=== PATIENT | female | born 1960 | race Two or more races ===

== ENCOUNTER 2017-03-09 13:39 | Emergency (ER) | payer MEDICARE ==
[2017-03-09] MEDS ORDERED: ONDANSETRON 4 MG/2 ML VIAL IVP STA (15:29)
[2017-03-09] MEDS ORDERED: SODIUM CHLORIDE 0.9% 1,000 ML IV ONE ×2 (15:29→15:42)
[2017-03-09] MEDS ORDERED: ONDANSETRON 4 MG/2 ML VIAL ONE (15:42)
[2017-03-09] MEDS ORDERED: PROMETHAZINE INJ 12.5 MG in SODIUM CHLORIDE 0.9% 50 ML IV STA (16:09)
[2017-03-09] MEDS ORDERED: PROMETHAZINE 25 MG/1 ML VIAL ONE (16:10)
[2017-03-09] MEDS ORDERED: MORPHINE 2 MG/ML SYRINGE IVP STA (16:57)
[2017-03-09] MEDS ORDERED: MORPHINE 2 MG/ML SYRINGE ONE (16:58)
[2017-03-09] MEDS ORDERED: HYOSCYAMINE SL 0.125 MG TABLET SL STA (17:25)
[2017-03-09] MEDS ORDERED: IOPAMIDOL-300 100 ML VIAL IVP ONE (17:52)
[2017-03-09] MEDS ORDERED: LIDOCAINE VISCOUS 2% 15 ML UDC MM STA (17:58)
[2017-03-09] MEDS ORDERED: MAG HYDROX/AL HYDROX/SIMETH 30 ML UDC PO STA (17:58)
[2017-03-09] MEDS ORDERED: SUCRALFATE 1 GM/10 ML UDC PO STA (17:58)
[2017-03-09] MEDS ORDERED: PANTOPRAZOLE 40 MG VIAL IVP STA (17:58)
[2017-03-09] MEDS ORDERED: LIDOCAINE VISCOUS 2% 15 ML UDC MM ONE (18:04)
[2017-03-09] MEDS ORDERED: PANTOPRAZOLE 40 MG VIAL ONE (18:05)
[2017-03-09] MEDS ORDERED: MAG HYDROX/AL HYDROX/SIMETH 30 ML UDC ONE (18:05)
[2017-03-09] MEDS ORDERED: SUCRALFATE 1 GM/10 ML UDC ONE (18:05)
== END 2017-03-09 18:49 | disposition home or self-care (01) ==
DX: K21.9 Gastro-esophageal reflux disease without esophagitis (principal); K44.9 Diaphragmatic hernia without obstruction or gangrene; R10.13 Epigastric pain; Z98.890 Other specified postprocedural states
CPT/HCPCS: 36415; 74177; 80053; 81001; 83690; 85025; 96374; 96375; 99283; 99284; A9270; Q9967

== ENCOUNTER 2017-07-10 09:31 | Outpatient (CLI) | payer MEDICARE ==
[2017-07-10 18:37] LABS: BASOPHILS # (AUTO) 0.1 10^3/uL (0.0-0.1); BASOPHILS % (AUTO) 0.8 %; EOSINOPHILS # (AUTO) 0.2 10^3/uL (0.0-0.7); EOSINOPHILS % (AUTO) 2.6 %; HCT - HEMATOCRIT 34.8 % (37.0-47.0); HGB - HEMOGLOBIN 11.4 g/dL (12.0-16.0); LYMPHOCYTES # (AUTO) 2.1 10^3/uL (1.5-3.5); LYMPHOCYTES % (AUTO) 30.1 %; MEAN CORPUSCULAR HEMOGLOBIN 24.2 pg (27.0-31.0); MEAN CORPUSCULAR HGB CONC 32.8 g/dL (32.0-36.0); MEAN CORPUSCULAR VOLUME 73.8 fL (81.0-99.0); MEAN PLATELET VOLUME 7.8 fL (7.9-10.8); MONOCYTES # (AUTO) 0.3 10^3/uL (0.0-1.0); MONOCYTES % (AUTO) 4.4 %; NEUTROPHILS # (AUTO) 4.4 10^3/uL (1.5-6.6); NEUTROPHILS % (AUTO) 62.1 %; NUCLEATED RED BLOOD CELLS AUTO 0.1 /100WBC; RED BLOOD COUNT 4.72 10^6/uL (4.20-5.40); RED CELL DISTRIBUTION WIDTH 19.3 % (12.0-15.0)
[2017-07-10 18:46] LABS: FERRITIN 5.4 ng/mL (11.0-306.8)
[2017-07-10 18:50] LABS: FOLATE 20.45 ng/mL (5.90 - >24.8)
[2017-07-10 18:57] LABS: ALBUMIN/GLOBULIN RATIO 1.2 (1.0-2.2); BILIRUBIN,TOTAL 0.5 mg/dL (0.2-1.0); BUN - BLOOD UREA NITROGEN 17 mg/dL (6-20); CALCIUM 9.2 mg/dL (8.5-10.3); CARBON DIOXIDE - CO2 23 mmol/L (21-32); CHLORIDE 108 mmol/L (101-111); CHOL/HDL RATIO 2.9 (<4.4); CHOLESTEROL 146 mg/dL; CREATININE 0.5 mg/dL (0.4-1.0); GFR - MDRD 128 (>89); GLUCOSE 91 mg/dL (70-100); HDL CHOLESTEROL 50 mg/dL; IRON 27 ug/dL (28-170); LDL/HDL RATIO 1.5 (<4.4); MAGNESIUM 1.9 mg/dL (1.7-2.8); POTASSIUM 3.8 mmol/L (3.5-5.0); SODIUM 140 mmol/L (135-145); TOTAL IRON BINDING CAPACITY 542 ug/dL (250-450); TOTAL PROTEIN 7.3 g/dL (6.7-8.2); TRANSFERRIN 387 mg/dL (192-382); TRIGLYCERIDES 111 mg/dL; VLDL CHOLESTEROL 22 mg/dL
== END 2017-07-10 09:32 | disposition home or self-care (01) ==
LOC: LAB.F 09:31
PROVIDERS: ATTEND Registered Nurse
DX: Z98.84 Bariatric surgery status (principal)
CPT/HCPCS: 36415; 80053; 80061; 82306; 82607; 82728; 82746; 83540; 83735; 83970; 84466; 85025; 86803

== ENCOUNTER 2017-12-04 13:20 | Outpatient (CLI) | payer MEDICARE, OTHER ==
--- NOTE | 2017-12-04 15:51 | XRAY Report ---
DATE OF SERVICE: 12/04/2017 THREE VIEW LUMBAR SPINE: 12/04/2017 CLINICAL INDICATION: Back pain. FINDINGS: AP, lateral, and coned down views of the lumbar spine demonstrate mild degenerative disk and facet disease. There is no evidence of compression fracture. The bowel gas pattern is unremarkable. IMPRESSION: MILD DEGENERATIVE CHANGES. TD: 12/04/2017 16:50
== END 2017-12-04 13:21 | disposition home or self-care (01) ==
LOC: DI.S 13:20
PROVIDERS: ATTEND Nurse Practitioner Family
DX: M51.36 Other intervertebral disc degeneration, lumbar region (principal); M47.896 Other spondylosis, lumbar region
CPT/HCPCS: 72100

== ENCOUNTER 2018-06-15 06:58 | Outpatient (CLI) | payer MEDICARE ==
[2018-06-15] MEDS ORDERED: IOPAMIDOL-300 50 ML VIAL ONE (08:25)
[2018-06-15] MEDS ORDERED: IOPAMIDOL-300 100 ML VIAL ONE (08:25)
[2018-06-15] MEDS ORDERED: IOPAMIDOL-300 100 ML VIAL IVP ONE (09:28)
[2018-06-15] MEDS ORDERED: IOPAMIDOL-300 50 ML VIAL PO ONE (09:28)
--- NOTE | 2018-06-15 10:24 | CT Report ---
Procedure Date: 06/15/2018 Accession Number: [id number] / [id number] Procedure: CT - Abdomen/Pelvis W/ CPT Code: FULL RESULT: EXAM: Abdomen/Pelvis W/ DATE: 06/15/2018 9:25 AM CLINICAL HISTORY: ABDOMINAL PAIN, DECREASED APPETITE COMPARISON: 03/09/2017. TECHNIQUE: Routine helical CT imaging was performed through the abdomen and pelvis. IV contrast: 100 mL Isovue 300. Enteric contrast: Yes. Reconstructions: Coronal and sagittal. In accordance with CT protocol optimization, one or more of the following dose reduction techniques were utilized for this exam: automated exposure control, adjustment of mA and/or KV based on patient size, or use of iterative reconstructive technique. FINDINGS: The patient is status post cholecystectomy and Marianela-en-Y gastric bypass. The liver, spleen, adrenal glands, kidneys and pancreas are unremarkable with the exception of renal hypodensities too small to characterize. There is no free air or free fluid and there is no small bowel obstruction. There is no lymphadenopathy. The patient is status post hysterectomy. IMPRESSION: No acute abnormality. RADIA
== END 2018-06-15 06:59 | disposition home or self-care (01) ==
LOC: DI 06:58
PROVIDERS: ATTEND Nurse Practitioner Family
DX: R10.9 Unspecified abdominal pain (principal); R63.0 Anorexia
CPT/HCPCS: 74177; Q9967

== ENCOUNTER 2020-03-15 17:39 | Outpatient (CLI) | payer MEDICARE | END 2020-03-15 17:40 | disposition home or self-care (01) | LOC: COV 17:39 | PROVIDERS: ATTEND Family Medicine | DX: R06.02 Shortness of breath (principal); M79.10 Myalgia, unspecified site; R06.2 Wheezing; R53.83 Other fatigue; J02.9 Acute pharyngitis, unspecified; R43.8 Other disturbances of smell and taste | CPT/HCPCS: 81599 ==

== ENCOUNTER 2020-09-21 09:15 | Emergency (ER) | payer MEDICARE ==
[2020-09-21] MEDS ORDERED: IBUPROFEN 600 MG TABLET PO STA (09:44)
[2020-09-21] MEDS ORDERED: AMOX/CLAV 875 MG/125 MG TABLET PO STA (09:45)
--- NOTE | 2020-09-21 09:45 | ED Physician Documentation ---
PD HPI UPPER EXT INJURY - Stated complaint Stated Complaint: DOG BITE LT HAND - Chief complaint Chief Complaint: Laceration - History obtained from History obtained from: Patient - History of Present Illness Location: Left, Hand Type of injury: Other (unaccompanied dog on the road near where patient lives. She approached the dog and it bit her hand.) Where injury occurred: Street Timing - onset: Today Timing - details: Abrupt onset Worsened by: Palpating Associated symptoms: No: Weakness, Numbness Similar symptoms before: Has not had sx before Review of Systems Constitutional: denies: Fever, Chills Nose: denies: Rhinorrhea / runny nose, Congestion Throat: denies: Sore throat Respiratory: denies: Cough Neurologic: denies: Focal weakness, Numbness PD PAST MEDICAL HISTORY - Past Medical History Cardiovascular: None Respiratory: None Endocrine/Autoimmune: None Psych: Depression, Anxiety Musculoskeletal: Chronic back pain - Past Surgical History Past Surgical History: Yes General: Cholecystectomy, Gastric surgery, 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, 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 Derm: Other - Present Medications Home Medications: Ambulatory Orders Medication Instructions Recorded Confirmed Lorazepam [Ativan] 1 mg PO DAILY 08/04/15 09/16/15 Venlafaxine HCl [Effexor Xr] 150 mg PO DAILY 08/04/15 09/16/15 tiZANidine [Zanaflex] 4 mg PO DAILY 08/04/15 09/16/15 Calcium Carbonate [Calcium] 09/16/15 09/16/15 Cholecalciferol (Vitamin D3) 09/16/15 09/16/15 [Vitamin D] Multivitamin [Multivitamins] 09/16/15 09/16/15 Omeprazole [PriLOSEC] 20 mg PO DAILY #30 capsule 03/09/17 Amox/Clav 875/125 [Augmentin] 1 each PO Q12H #14 tablet 09/21/20 - Allergies Allergies/Adverse Reactions: Allergies Allergy/AdvReac Type Severity Reaction Status Date / Time calcium carbonate [From DHEA] Allergy Nausea Verified 09/21/20 09:30 calcium phosphate,dibasic * Allergy Nausea Verified 09/21/20 09:30 [From DHEA] gabapentin [From Neurontin] Allergy Edema Verified 09/21/20 09:30 hydrocodone bitartrate * Allergy Itching Verified 09/21/20 09:30 [From Vicodin] prasterone (DHEA) [From DHEA] Allergy Nausea Verified 09/21/20 09:30 tramadol Allergy Nausea Verified 09/21/20 09:30 - Social History Does the pt smoke?: No Smoking Status: Never smoker Does the pt drink ETOH?: Yes Does the pt have substance abuse?: No PD ED PE NORMAL - Vitals Vital signs reviewed: Yes - General General: Alert and oriented X 3, No acute distress, Well developed/nourished - Derm Derm: Normal color, Warm and dry - Extremities Extremities: Other (left hand with several lacs: largest at the thenar area, down to fatty layer tissue. No FB nor deeper structures involved. No bleeding. There are also lacs in web space, at dorsum thumb base and over 1st MC. ) - Neuro Neuro: No motor deficit, No sensory deficit Results - Vitals Vitals: Vital Signs - 24 hr 09/21/20 09/21/20 09:22 12:02 Temperature 36.2 C L 36.7 C Heart Rate 70 89 Respiratory 16 18 Rate Blood Pressure 126/85 H 130/81 H O2 Saturation 100 97 Oxygen O2 Source Room air Procedures - Laceration (location) left hand Length in cm: 5 (lacs at thenar area, dorsum thumb base, and thumb base web space. ) Wound type: Linear Neurovascular status: Sensory intact, Motor intact, Vascular intact Anesthesia: Lidocaine 1% with epi Wound Preparation: Irrigated copiously NS, Wound explored, To the base. No: FB identified Skin layer closure: Running, Size #-0 - enter number (4), Sutures - enter # (28 (13 sutures at thenar area and several in each of the other lacs).) Other: Patient tolerated well, No complications, Neurovascular intact, Dressing applied, Tetanus UTD Departure - Departure Disposition: 01 Home, Self Care Clinical Impression: Dog bite, hand Qualifiers: Encounter type: initial encounter Laterality: left Qualified Code(s): S61.452A - Open bite of left hand, initial encounter Condition: Stable Record reviewed to determine appropriate education?: Yes Instructions: ED Bite Dog, ED Laceration Hand Follow-Up: Matthew Goodman MD [Primary Care Provider] - Prescriptions: Amox/Clav 875/125 [Augmentin] 1 each PO Q12H #14 tablet Comments: It is okay to wash and shower. Clean off the wound twice a day with soap and water, or peroxide and water. Apply some antibiotic ointment to it to keep it moist. Also to watch for signs of infection such as purulence, redness or increasing pain. Return to your primary care or the ER at the specified time for suture removal. Suture removal 8 to 10 days. Tylenol ibuprofen or naproxen as needed for pains. Light use of the hand while the sutures are in. Augmentin twice daily for a week to reduce the chance of infection. Thanks for sharing your stories. Discharge Date/Time: 09/21/20 12:10
[2020-09-21] MEDS ORDERED: BACITRACIN ZINC OINT 1 PACKET TOP STA (11:55)
[2020-09-21 12:03] VITALS: BP 130/81
--- NOTE | 2020-09-21 18:06 | ED Physician Documentation ---
ED Addendum - Addendum Addendum: 09/21/20 18:05 59-year-old female called back to the emergency department stating that she has numbness to the left thumb still. She received a laceration repair with lidocaine earlier today after a dog bite. Recommend that she monitor this at home and that she see how she does over the next [address] Armijo's note is not yet complete at this time, therefore I do not know what her neurovascular exam was like prior to the digital block. If it is due to the lidocaine, I would expect this to improve rapidly, if there is cutaneous nerve injury from a dog bite, it may take several weeks to months. Patient was counseled regarding this. She will follow-up with her doctor for further care. This document was made in part using voice recognition software. While efforts are made to proofread this document, sound alike and grammatical errors may occur.
== END 2020-09-21 12:10 | disposition home or self-care (01) ==
LOC: ED 09:15
DX: S61.452A Open bite of left hand, initial encounter (principal); W54.0XXA Bitten by dog, initial encounter; Y92.414 Local residential or business street as the place of occurrence of the external cause; R20.0 Anesthesia of skin
CPT/HCPCS: 12002; 99282; 99283; A9270

== ENCOUNTER 2020-11-30 11:59 | Emergency (ER) | payer MEDICARE ==
[2020-11-30] MEDS ORDERED: ONDANSETRON 4 MG/2 ML VIAL IVP STA (12:27)
--- NOTE | 2020-11-30 12:34 | XRAY Report ---
PROCEDURE: Chest 1 View X-Ray INDICATIONS: Chest pain TECHNIQUE: One view of the chest was acquired. COMPARISON: Lung bases on CT 06/15/2018. FINDINGS: Surgical changes and devices: Clips in the region of the proximal stomach. Lungs and pleura: No pleural effusions or pneumothorax. Lungs are clear. Mediastinum: Mediastinal contours appear normal. Heart size is normal. Bones and chest wall: No suspicious bony lesions. Overlying soft tissues appear unremarkable. IMPRESSION: No acute cardiopulmonary abnormality. Reviewed by: Clem Tan MD on 11/30/2020 11:33 AM [facility] Approved by: Clem Tan MD on 11/30/2020 11:33 AM [facility] Station ID: [id number]
[2020-11-30 12:35] LABS: BASOPHILS # (AUTO) 0.1 10^3/uL (0.0-0.1); BASOPHILS % (AUTO) 0.7 %; EOSINOPHILS # (AUTO) 0.3 10^3/uL (0.0-0.7); EOSINOPHILS % (AUTO) 2.4 %; HGB - HEMOGLOBIN 12.5 g/dL (12.0-16.0); LYMPHOCYTES # (AUTO) 2.5 10^3/uL (1.5-3.5); LYMPHOCYTES % (AUTO) 23.5 %; MEAN CORPUSCULAR HEMOGLOBIN 27.4 pg (27.0-31.0); MEAN CORPUSCULAR HGB CONC 32.8 g/dL (32.0-36.0); MEAN CORPUSCULAR VOLUME 83.6 fL (81.0-99.0); MEAN PLATELET VOLUME 8.9 fL (7.9-10.8); MONOCYTES # (AUTO) 0.6 10^3/uL (0.0-1.0); MONOCYTES % (AUTO) 5.6 %; NEUTROPHILS # (AUTO) 7.2 10^3/uL (1.5-6.6); NEUTROPHILS % (AUTO) 67.5 %; PLT - PLATELET COUNT 424 10^3/uL (130-450); RED BLOOD COUNT 4.56 10^6/uL (4.20-5.40); RED CELL DISTRIBUTION WIDTH 16.3 % (12.0-15.0); WHITE BLOOD COUNT 10.6 x10^3/uL (4.8-10.8)
--- NOTE | 2020-11-30 12:36 | ED Physician Documentation ---
PD HPI ABD PAIN - Stated complaint Stated Complaint: ABD PX,CHEST PX - Chief complaint Chief Complaint: Cardiac - History obtained from History obtained from: Patient - History of Present Illness Timing - onset: How many days ago (3) Timing - duration: Days (3) Timing - details: Gradual onset Quality: Cramping, Aching Location: All over / everywhere Associated symptoms: No: Fever, Nausea, Vomiting, Hematemesis, Diarrhea, Constipation, Melena, Hematochezia, Dysuria Similar symptoms before: Has not had sx before Recently seen: Not recently seen - Additional information Additional information: Patient is a 60-year-old female who presents to the emergency department with abdominal pain intermittently for the past 3 days. Has had occasional intermittent vomiting. A gastric bypass many years ago. States she believes it was a Marianela-en-Y. Patient also states that she has taken Tums and Mylanta with minimal relief. She has not had any fevers. Occasionally the pain will radiate up towards her chest. She has had a prior cholecystectomy. She states she is normally tachycardic. She relates this to her history of anxiety. 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 Derm: Other - Present Medications Home Medications: Ambulatory Orders Medication Instructions Recorded Confirmed Lorazepam [Ativan] 1 mg PO DAILY 08/04/15 11/30/20 Venlafaxine HCl [Effexor Xr] 150 mg PO DAILY 08/04/15 11/30/20 tiZANidine [Zanaflex] 4 mg PO DAILY 08/04/15 11/30/20 Calcium Carbonate [Calcium] 09/16/15 09/16/15 Cholecalciferol (Vitamin D3) 09/16/15 09/16/15 [Vitamin D] Multivitamin [Multivitamins] 09/16/15 09/16/15 Omeprazole [PriLOSEC] 20 mg PO DAILY #30 capsule 03/09/17 Amox/Clav 875/125 [Augmentin] 1 each PO Q12H #14 tablet 09/21/20 Dexlansoprazole [Dexilant] 30 mg PO DAILY #30 11/30/20 - Allergies Allergies/Adverse Reactions: Allergies Allergy/AdvReac Type Severity Reaction Status Date / Time calcium carbonate [From DHEA] Allergy Nausea Verified 11/30/20 12:05 calcium phosphate,dibasic * Allergy Nausea Verified 11/30/20 12:05 [From DHEA] gabapentin [From Neurontin] Allergy Edema Verified 11/30/20 12:05 hydrocodone bitartrate * Allergy Itching Verified 11/30/20 12:05 [From Vicodin] prasterone (DHEA) [From DHEA] Allergy Nausea Verified 11/30/20 12:05 tramadol Allergy Nausea Verified 11/30/20 12:05 - Social History Does the pt smoke?: No Smoking Status: Never smoker Does the pt drink ETOH?: Yes Does the pt have substance abuse?: No - Immunizations Immunizations are current?: Yes PD ED PE NORMAL - Vitals Vital signs reviewed: Yes - General General: Alert and oriented X 3, No acute distress - HEENT HEENT: Moist mucous membranes - Neck Neck: Supple, no meningeal sign - Cardiac Cardiac: RRR, Strong equal pulses - Respiratory Respiratory: No respiratory distress, Clear bilaterally - Abdomen Abdomen: Soft, Non distended, Other (Tender palpation right upper quadrant and epigastric without peritoneal signs.) - Derm Derm: Warm and dry - Extremities Extremities: No edema - Neuro Neuro: Alert and oriented X 3 Results - Vitals Vitals: Vital Signs - 24 hr 11/30/20 11/30/20 11/30/20 12:05 12:36 13:06 Temperature 37.0 C 36.6 C Heart Rate 122 H 115 H 96 Respiratory 18 13 17 Rate Blood Pressure 120/83 H 122/94 H 117/83 H O2 Saturation 98 100 100 11/30/20 11/30/20 14:23 14:30 Temperature Heart Rate 88 104 H Respiratory 17 20 Rate Blood Pressure 136/89 H 116/82 H O2 Saturation 100 100 Oxygen O2 Source Room air - EKG (time done) 1207 Rate: Rate (enter#) (113) Rhythm: Sinus tachycardia [place]: Normal Intervals: Normal [place] QRS: Normal Ischemia: Normal ST segments - Labs Labs: Laboratory Tests 11/30/20 11/30/20 11/30/20 12:27 12:27 12:27 WBC 10.6 RBC 4.56 Hgb 12.5 Hct 38.1 MCV 83.6 MCH 27.4 MCHC 32.8 RDW 16.3 H Plt Count 424 MPV 8.9 Neut # (Auto) 7.2 H Lymph # (Auto) 2.5 [place]aufman # (Auto) 0.6 Eos # (Auto) 0.3 Baso # (Auto) 0.1 Absolute Nucleated RBC 0.00 Nucleated RBC % 0.0 Sodium 138 Potassium 4.0 Chloride 102 Carbon Dioxide 23 Anion Gap 13.0 BUN 16 Creatinine 0.6 Estimated GFR (MDRD) 102 Glucose 101 H Calcium 9.0 Total Bilirubin 0.5 AST 19 ALT 13 Alkaline Phosphatase 113 Troponin I High Sens < 2.3 L Total Protein 7.8 Albumin 4.0 Globulin 3.8 Albumin/Globulin Ratio 1.1 Lipase 30 - Rads (name of study) Chest x-ray Radiology: Prelim report reviewed, EMP read contemporaneously, See rad report (No acute disease) CT abd/pelvis Radiology: Prelim report reviewed, EMP read contemporaneously, See rad report PD MEDICAL DECISION MAKING - ED course Complexity details: reviewed results, re-evaluated patient, considered differential, d/w patient ED course: Patient with abdominal pain, unclear etiology. Possible gastritis vs peptic ulcer disease. No significant findings on CT scan, no laboratory abnormalities. Has had a prior cholecystectomy. Feels better after GI cocktail. Will place on Nexium for home. Patient is well-appearing, nontoxic. Afebrile. Abdomen is soft, minimally tender on serial exam. Patient counseled regarding signs and symptoms for which I believe and urgent re-evaluation would be necessary. Patient with good understanding of and agreement to plan and is comfortable going home at this time This document was made in part using voice recognition software. While efforts are made to proofread this document, sound alike and grammatical errors may occur. CT Abd/pelvis 1. No small bowel obstruction or significant adynamic ileus. No free fluid. 2. Marianela-en-Y gastric bypass is unchanged in appearance. Stomach is not distended. Small hiatal hernia. Departure - Departure Disposition: 01 Home, Self Care Clinical Impression: Abdominal pain Qualifiers: Abdominal location: epigastric Qualified Code(s): R10.13 - Epigastric pain Gastritis Qualifiers: Gastritis type: unspecified gastritis Chronicity: acute Gastritis bleeding: without bleeding Qualified Code(s): K29.00 - Acute gastritis without bleeding Condition: Good Instructions: ED PUD Vs Gastritis Follow-Up: Matthew Goodman MD [Primary Care Provider] - Within 1 week Prescriptions: Dexlansoprazole [Dexilant] 30 mg PO DAILY #30 cap. Comments: Use the medications prescribed. Return if you worsen. Follow-up with your doctor for further care. Eat a bland diet. No spicy foods, alcohol, fried foods. Discharge Date/Time: 11/30/20 14:51
[2020-11-30] MEDS ORDERED: IOVERSOL 320 100 ML VIAL IVP ONE ×2 (12:42→13:41)
[2020-11-30] MEDS ORDERED: IOVERSOL 320 50 ML VIAL ONE (12:42)
[2020-11-30 12:48] LABS: ALBUMIN/GLOBULIN RATIO 1.1 (1.0-2.2); BILIRUBIN,TOTAL 0.5 mg/dL (0.2-1.0); CREATININE 0.6 mg/dL (0.4-1.0); TOTAL PROTEIN 7.8 g/dL (6.7-8.2)
--- NOTE | 2020-11-30 13:57 | CT Report ---
PROCEDURE: Abdomen/Pelvis W INDICATIONS: diffuse abd pain, h/o grastric bypass CONTRAST: IV CONTRAST: Optiray 320 ml: 100 PO CONTRAST: Optiray 320 ml50 TECHNIQUE: After the administration of oral and intravenous contrast, 5 mm thick sections acquired from the diap hragms to the symphysis. 5 mm thick coronal and sagittal reformats were acquired. For radiation dos e reduction, the following was used: automated exposure control, adjustment of mA and/or kV accordin g to patient size. COMPARISON: CT abdomen and pelvis 06/15/2018, 03/09/2017. FINDINGS: Image quality: Excellent. ABDOMEN: Lung bases: Lung bases are clear. Heart size is normal. Solid organs: Liver and spleen are normal in size and enhancement. Gallbladder is surgically absent . Biliary system is non dilated. Pancreas enhances normally. No adrenal nodules. Kidneys demonstr ate normal size and enhancement, without hydronephrosis. Peritoneum and bowel: Small hiatal hernia. Findings of Marianela-en-Y gastric bypass. Findings are not si gnificant change. Stomach is not distended. Small bowel is patulous near the jejunojejunal anastomosi s in the left upper quadrant, unchanged compared to 2018. No small bowel obstruction. Enteric contras t transits to the level of the ileum. The appendix is not identified. A few colonic diverticuli. No f ree fluid or air. Nodes and vessels: No retroperitoneal or mesenteric adenopathy by size criteria. Aorta and inferior vena cava are normal in size. Miscellaneous: No ventral hernias. Ventral abdominal scar. PELVIS: Genitourinary: Bladder wall thickness is normal. Uterus is absent. Miscellaneous: No inguinal hernias or adenopathy. Bones: No suspicious bony lesions. 4 mm of anterolisthesis of L4 on L5, similar the prior exam. No v ertebral body compression fractures. IMPRESSION: 1. No small bowel obstruction or significant adynamic ileus. No free fluid. 2. Marianela-en-Y gastric bypass is unchanged in appearance. Stomach is not distended. Small hiatal hernia . Reviewed by: Clem Tan MD on 11/30/2020 12:56 PM [facility] Approved by: Clem Tan MD on 11/30/2020 12:56 PM [facility] Station ID: [id number]
[2020-11-30] MEDS ORDERED: PANTOPRAZOLE 40 MG VIAL IVP STA (14:31)
[2020-11-30] MEDS ORDERED: LIDOCAINE VISCOUS 2% 15 ML UDC MM STA (14:31)
[2020-11-30] MEDS ORDERED: SUCRALFATE 1 GM/10 ML UDC PO STA (14:31)
[2020-11-30] MEDS ORDERED: MAG HYDROX/AL HYDROX/SIMETH 30 ML UDC PO STA (14:31)
[2020-11-30 14:43] VITALS: BP 116/82
--- OUTSIDE RECORDS SUMMARY | 2020-12-05 01:39 | EXTERNAL MEDICAL SUMMARY RPT | Continuity of Care Document ---
:1960 Demographics Phone Unavailable Preferred Language Unknown Marital Status Unknown Shinto Affiliation Unknown Race Unknown Ethnic Group Unknown Author Organization [facility] Address [address] [phone] Phone Care Team Providers Name Role Phone Goodman Unavailable Unavailable Problems date description facility 2018-06-28 11:00 ENCNTR SCREEN MAMMOGRAM FOR [facility] MALIGNANT NEOPLASM OF BREAST 2018-06-28 11:00 ENCOUNTER FOR OT SCREENING FOR [facility] MALIGNANT NEOPLASM OF BREAST 2020-09-21 09:[address] [facility] Medic [facility] 2020-09-21 09:15 OPEN BITE OF LEFT HAND, INITIAL [facility] ENCOUNTER 2020-09-21 09:15 BITTEN BY DOG, INITIAL ENCOUNTER [facility] 2020-09-21 09:15 LOCAL RESIDENTIAL OR BUSINESS [facility] [address] Allergies date description facility [facility] JACKIE Inhibitors [facility] [place] CODEINE [facility] [place] GADOLINIUM-CONTAINING CONTRAST MEDIA [facility] HYDROCODONE HCL [facility] [place] HYDROMORPHONE (BULK) [facility] ical [place] IODINATED CONTRAST MEDIA [facility] LORAZEPAM [facility] MORPHINE [facility] [place] OXYCODONE [facility] [place] PROMETHAZINE [facility] [place] FISH CONTAINING PRODUCTS [facility] SHELLFISH CONTAINING PRODUCTS [facility] NO KNOWN ALLERGIES [facility] [place] ATOVAQUONE-PROGUANIL [facility] NO KNOWN ENVIRONMENTAL ALLERGIES [facility] SULFA ANTIBIOTICS [facility] Center BETA-BLOCKERS (BETA-ADRENERGIC BLOCKING AGTS) [facility] JACKIE INHIBITORS [facility] PINEAPPLE [facility] CODEINE [facility] [place] CEPHALEXIN [facility] AMOXICILLIN [facility] calcium phosphate,dibasic * [facility] [place] hydrocodone bitartrate * [facility] calcium carbonate [facility] tramadol [facility] gabapentin [facility] prasterone (DHEA) [facility] Center Results Social History date description facility [id number]
== END 2020-11-30 14:51 | disposition home or self-care (01) ==
LOC: ED 11:59
DX: K29.00 Acute gastritis without bleeding (principal); K44.9 Diaphragmatic hernia without obstruction or gangrene; R00.0 Tachycardia, unspecified; Z98.84 Bariatric surgery status; Z90.49 Acquired absence of other specified parts of digestive tract
CPT/HCPCS: 36415; 71045; 74177; 80053; 83690; 84484; 85025; 93005; 96374; 96375; 99284; A9270; Q9967

== ENCOUNTER 2021-08-06 12:33 | Emergency (ER) | payer OTHER, MEDICARE ==
--- NOTE | 2021-08-06 15:10 | ED Physician Documentation ---
PD HPI UPPER EXT INJURY - Stated complaint Stated Complaint: RT ARM LAC - Chief complaint Chief Complaint: Laceration - History of Present Illness Location: Right, Arm Type of injury: Fall, Laceration Where injury occurred: Work Timing - duration: Hours Improved by: Nothing - Additonal information Additional information: This is a 60-year-old woman who was at work at the [employer] when she was rounding a corner in her right foot had a tote and she fell forward landing on a cardboard box on her right arm and suffering a laceration and her outstretched left wrist. She also closed her right ring finger in a cabinet door in the process. Denies numbness or tingling into the hands. Last tetanus immunization was greater than 10 years ago. She denies hitting her head. She did not pass out. She did complain of back pain but said that is an ongoing issue. 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 Derm: Other - Present Medications Home Medications: Ambulatory Orders Medication Instructions Recorded Confirmed Lorazepam [Ativan] 1 mg PO DAILY 08/04/15 11/30/20 Venlafaxine HCl [Effexor Xr] 150 mg PO DAILY 08/04/15 11/30/20 tiZANidine [Zanaflex] 4 mg PO DAILY 08/04/15 11/30/20 Calcium Carbonate [Calcium] 09/16/15 09/16/15 Cholecalciferol (Vitamin D3) 09/16/15 09/16/15 [Vitamin D] Multivitamin [Multivitamins] 09/16/15 09/16/15 Omeprazole [PriLOSEC] 20 mg PO DAILY #30 capsule 03/09/17 Amox/Clav 875/125 [Augmentin] 1 each PO Q12H #14 tablet 09/21/20 Dexlansoprazole [Dexilant] 30 mg PO DAILY #30 11/30/20 - Allergies Allergies/Adverse Reactions: Allergies Allergy/AdvReac Type Severity Reaction Status Date / Time calcium carbonate [From DHEA] Allergy Nausea Verified 08/06/21 12:50 calcium phosphate,dibasic * Allergy Nausea Verified 08/06/21 12:50 [From DHEA] gabapentin [From Neurontin] Allergy Edema Verified 08/06/21 12:50 hydrocodone bitartrate * Allergy Itching Verified 08/06/21 12:50 [From Vicodin] prasterone (DHEA) [From DHEA] Allergy Nausea Verified 08/06/21 12:50 tramadol Allergy Nausea Verified 08/06/21 12:50 - Social History Does the pt smoke?: No Smoking Status: Never smoker Does the pt drink ETOH?: Yes Does the pt have substance abuse?: No - Immunizations Immunizations are current?: Yes PD ED PE NORMAL - Vitals Vital signs reviewed: Yes - General General: Alert and oriented X 3, No acute distress, Well developed/nourished - HEENT HEENT: Atraumatic - Derm Derm: Other (Lac R forearm ulnar aspect, stellate) - Extremities Extremities: Other (Contusion R ring finger proximal to nail bed; Pain L wrist at base of thumb and swelling) - Neuro Neuro: Alert and oriented X 3, No motor deficit, No sensory deficit, Normal speech - Psych Psych: Normal mood Results - Vitals Vitals: Vital Signs - 24 hr 08/06/21 08/06/21 08/06/21 12:45 15:11 18:07 Temperature 36.6 C 37 C 98 C H Heart Rate 96 102 H 92 Respiratory 15 16 16 Rate Blood Pressure 138/82 H 161/93 H 134/98 H O2 Saturation 98 100 98 Oxygen O2 Source Room air Procedures - Laceration (location) Upper extremity right Ulnar Complexity Definitions:: simple Length in cm: 4 Wound type: Flap, Clean Neurovascular status: Sensory intact, Motor intact, Vascular intact Anesthesia: Lidocaine 1% Wound preparation: Hibiclens Skin layer closure: Nylon, Sutures - enter # (corner stitch and 5 simple interrupted) Other: Patient tolerated well, No complications, Dressing applied, Tetanus UTD PD MEDICAL DECISION MAKING - ED course Complexity details: re-evaluated patient, d/w patient ED course: Laceration was sewn. X-rays show some arthritic changes both in the left wrist and the right fourth finger DIP joint but no definite fracture. She will be placed in a Velcro splint for the left wrist for comfort. Suture removal in 10 to 12 days. Limited use of the left hand for the next 10 days. Follow-up with your primary care provider or provider as recommended by her employer for return to full duty. Departure - Departure Disposition: 01 Home, Self Care Clinical Impression: Laceration, Sprain of wrist, left, Contusion of ring finger without damage to nail Condition: Good Instructions: ED Laceration All, ED Splint Care Velcro, ED Sprain Wrist, ED Contusion Hand Ch Follow-Up: Matthew Goodman MD [Primary Care Provider] - Comments: Wear the splint on the left wrist for comfort. Limit use of the left hand for 10 days. You may wash the laceration tomorrow with mild soap and water, pat it dry and apply a clean dressing. Keep it covered except at night when she is comfortable with it you can allow it to air dry. Ice the left wrist for comfort. You may take your pain medication at home if needed for pain control. Follow-up for suture removal in 10 days. Follow-up with provider at the discretion of your employer for return to full duty. Discharge Date/Time: 08/06/21 18:07
[2021-08-06] MEDS ORDERED: TETANUS/DIPHTHERIA/PERTUSSIS 0.5 ML SYRINGE IM ONE (15:30)
[2021-08-06] MEDS ORDERED: LIDOCAINE 1% 2 ML VIAL SUBQ STA (15:30)
[2021-08-06] MEDS ORDERED: IBUPROFEN 600 MG TABLET PO STA (15:32)
--- NOTE | 2021-08-06 16:48 | XRAY Report ---
PROCEDURE: Finger(s) RT INDICATIONS: pain TECHNIQUE: AP hand, 3 views of the fourth finger(s) acquired. COMPARISON: X-ray wrist 08/06/2021 FINDINGS: Bones: No fractures or dislocations. No suspicious bony lesions. Diffuse IP degenerative narrowing is present most severe at the fourth and fifth digits DIP joints. Soft tissues: No suspicious soft tissue calcifications. IMPRESSION: Arthritic changes as above. No visualized acute fracture or dislocation. However, occult injury canno t be excluded. Recommend short interval imaging follow-up in 7-10 days as clinically indicated for ad ditional evaluation. Reviewed by: Melani Mathis MD on 08/06/2021 4:47 PM PDT Approved by: Melani Mathis MD on 08/06/2021 4:47 PM PDT Station ID: [id number]
--- NOTE | 2021-08-06 16:53 | XRAY Report ---
PROCEDURE: Wrist 3 View LT INDICATIONS: pain TECHNIQUE: 3 views of the wrist were acquired. COMPARISON: X-ray fingers 08/06/2021 FINDINGS: Bones: No fractures or dislocations. No suspicious bony lesions. Partially visualized degenerative IP changes are noted. Scaphoid view: Not obtained. Soft tissues: No suspicious soft tissue calcifications. IMPRESSION: No visualized acute fracture or dislocation. However, occult injury cannot be excluded. Recommend aniyah rt interval imaging follow-up in 7-10 days as clinically indicated for additional evaluation. Reviewed by: Melani Mathis MD on 08/06/2021 4:52 PM PDT Approved by: Melani Mathis MD on 08/06/2021 4:52 PM PDT Station ID: [id number]
[2021-08-06 18:08] VITALS: BP 134/98
== END 2021-08-06 18:07 | disposition home or self-care (01) ==
LOC: ED 12:33
DX: S61.512A Laceration without foreign body of left wrist, initial encounter (principal); S63.502A Unspecified sprain of left wrist, initial encounter; S60.041A Contusion of right ring finger without damage to nail, initial encounter; W01.198A Fall on same level from slipping, tripping and stumbling with subsequent striking against other object, initial encounter; Y93.89 Activity, other specified; Y92.89 Other specified places as the place of occurrence of the external cause; Y99.0 Civilian activity done for income or pay
CPT/HCPCS: 1040M; 12002; 73110; 73140; 90471; 90715; 99282; 99283; A9270